=== PATIENT | born 1965 | race Caucasian/White ===

== ENCOUNTER → 2024-07-11 11:18 | Outpatient (BNVA) | payer MEDICARE, SELFPAY | PROVIDERS: Visit Provider Specialist | DX: G37.9 Demyelinating disease of central nervous system, unspecified (principal); R41.89 Other symptoms and signs involving cognitive functions and awareness; F11.20 Opioid dependence, uncomplicated; F19.10 Other psychoactive substance abuse, uncomplicated | CPT/HCPCS: 96116; 99205 ==